=== PATIENT | female | born 1990 | race Caucasian/White ===

== ENCOUNTER 2017-05-11 10:01 | Emergency (ER) | payer OTHER ==
[~2017-05-11] VITALS: Ht 154.9 cm; Wt 87.4 kg
[2017-05-11 11:30] LABS: HEMATOCRIT 40.3 % (36.0-46.0); HEMOGLOBIN 13.6 G/DL (11.9-15.5); MCH 29.8 PG (29.0-34.0); MCHC 33.7 G/DL (30.0-36.0); MCV 88.2 FL (83-99); PLATELET COUNT 273 K/uL (156-360); RBC DIS.WIDTH-CV 12.5 % (11.8-14.6); RBC DIS.WIDTH-SD 40.1 % (39-53); RED BLOOD COUNT 4.57 M/uL (3.80-5.20); WHITE BLOOD COUNT 11.6 K/uL (4.1-10.2)
[2017-05-11 11:38] LABS: ALBUMIN 4.3 g/dL (3.2-4.8); CHLORIDE 105 mEq/L (99-109); POTASSIUM 3.9 mEq/L (3.7-5.4); SODIUM 138 mEq/L (136-147)
[2017-05-11 11:41] LABS: GLUCOSE 104 mg/dL (70-99); TOTAL PROTEIN 7.1 g/dL (6.4-8.3)
[2017-05-11 11:42] LABS: TOTAL BILIRUBIN 0.5 mg/dL (0.0-1.0)
[2017-05-11 11:44] LABS: ALKALINE PHOSPHATASE 95 IU/L (3-129); CREATININE 0.7 mg/dL (0.6-1.3); GFR ESTIMATE (CALCULATED) > 59 mL/min/
[2017-05-11 11:45] LABS: UREA NITROGEN (BUN) 10 mg/dL (9-23)
[2017-05-11 11:46] LABS: AST (GOT) 20 IU/L (2-34)
[2017-05-11 11:47] LABS: ALT (GPT) 34 IU/L (3-49)
[2017-05-11 11:53] LABS: QUANTITATIVE HCG < 4.0 MIU/ML
[2017-05-11 12:02] LABS: APPEARANCE CLEAR ((CLEAR)); BILIRUBIN NEGATIVE; BLOOD NEGATIVE; COLOR YELLOW ((YELLOW)); GLUCOSE (STRIP) NEGATIVE; KETONES NEGATIVE; LEUKOCYTES NEGATIVE; NITRITE NEGATIVE; PROTEIN (STRIP) NEGATIVE; SPECIFIC GRAVITY 1.028 (1.000-1.030); UROBILINOGEN 0.2 MG/DL (0.2-1.0)
[2017-05-11] MEDS ORDERED: ZOFRAN ODT8 MG PO (15:01)
[2017-05-11] MEDS ORDERED: BENTYL20 MG PO (15:01)
[2017-05-11 15:39] VITALS: BP 116/57
== END 2017-05-11 15:54 | disposition home or self-care (01) ==
LOC: EME 10:01
PROVIDERS: Physician Assistant
DX: R11.2 Nausea with vomiting, unspecified (principal); R19.7 Diarrhea, unspecified
CPT/HCPCS: 76705; 80053; 81003; 84702; 85027; J2270; J2405; J7030